=== PATIENT | male | born 1955 | race Caucasian/White ===

== ENCOUNTER 2022-03-11 07:45 | Observation (INO) ==
--- NOTE | 2022-02-13 10:45 | PAT Medication Instructions ---
Medication Instructions Date of Service February 13, 2022 Home Medications Medication Instructions Recorded Wheeled Walker #1 ea 01/02/22 Wheeled Walker ascorbic acid (vitamin C) 500 mg chewable tablet (Vitamin C) 1,000 mg PO QAM aspirin 81 mg tablet,delayed release 81 mg PO QAM carvedilol 6.25 mg tablet 6.25 mg PO BID cholecalciferol (vitamin D3) 125 mcg (5,000 unit) tablet (Vitamin D3) 125 mcg PO QAM dulaglutide 3 mg/0.5 mL subcutaneous pen injector (Trulicity) 3 mg subcut WK insulin aspart U-100 100 unit/mL (3 mL) subcutaneous pen (Novolog Flexpen U-100 Insulin aspart) 12 - 20 unit subcut UD insulin degludec 100 unit/mL (3 mL) subcutaneous pen (Tresiba FlexTouch U-100 insulin) 64 unit subcut BID metformin 1,000 mg tablet 1,000 mg PO BID multivitamin 1 tab PO QAM paroxetine HCl 10 mg tablet 10 mg PO QAM paroxetine HCl 40 mg tablet 40 mg PO QAM rosuvastatin 40 mg tablet 40 mg PO HS spironolactone 25 mg tablet 12.5 mg PO QAM valsartan 40 mg tablet 40 mg PO HS Continue as directed dulaglutide 3 mg/0.5 mL subcutaneous pen injector (Trulicity) 3 mg subcut WK DO NOT take the morning of surgery ascorbic acid (vitamin C) 500 mg chewable tablet (Vitamin C) 1,000 mg PO QAM cholecalciferol (vitamin D3) 125 mcg (5,000 unit) tablet (Vitamin D3) 125 mcg PO QAM metformin 1,000 mg tablet 1,000 mg PO BID multivitamin 1 tab PO QAM spironolactone 25 mg tablet 12.5 mg PO QAM insulin aspart U-100 100 unit/mL (3 mL) subcutaneous pen (Novolog Flexpen U-100 Insulin aspart) 12 - 20 unit subcut UD Take morning of surgery With a small sip of water, OTHERWISE NOTHING TO EAT OR DRINK AFTER MIDNIGHT: aspirin 81 mg tablet,delayed release 81 mg PO QAM (unless directed otherwise by surgeon) carvedilol 6.25 mg tablet 6.25 mg PO BID paroxetine HCl 10 mg tablet 10 mg PO QAM paroxetine HCl 40 mg tablet 40 mg PO QAM Take evening before surgery carvedilol 6.25 mg tablet 6.25 mg PO BID metformin 1,000 mg tablet 1,000 mg PO BID rosuvastatin 40 mg tablet 40 mg PO HS valsartan 40 mg tablet 40 mg PO HS Insulin Dependent Diabetic Patients * Test your blood sugar the morning of surgery * If Blood Sugar is GREATER THAN 150, take HALF of your regular dose of: insulin degludec 100 unit/mL (3 mL) subcutaneous pen (Tresiba FlexTouch U-100 insulin)-32 unit subcut BID. * If Blood Sugar is LESS THAN 150, DO NOT TAKE ANY: insulin degludec 100 unit/mL (3 mL) subcutaneous pen (Tresiba FlexTouch U-100 insulin). Other Notes If you have any questions please call us at [phone] or [phone] or [phone] or [phone]
--- NOTE | 2022-02-17 12:56 | Anesthesiology Consultation ---
Date of Service February 17, 2022 Assessment & Plan (1) Encounter for pre-operative examination: - Check BSG AM DOS - COVID screening: Per assessment on 02/17: No known COVID-19 positive contacts or current COVID-19 related symptoms. Travel screen negative. Patient vaccinated. At surgeon discretion if preop Covid testing being done. - Outpatient joint assessment: Pt currently scheduled for inpatient pathway. If surgeon requests review for outpatient joint pathway, patient is not recommended candidate for outpatient joint program from anesthesia standpoint. - Pt scheduled to see cardio for routine f/u prior to surgery. Awaiting upcoming cardiology office visit note (Dr. Ku/Jose Alberto; appt 03/04). Chart Review Chart Review: Patient seen in Pre Admission Testing Teaching & Discussion Pre-Anesthesia Teaching/Discussion Notes: Instructed NPO after midnight before surgery,except medications with 15 cc of water. Medication instructions provided according to the PAT guidelines. History Surgery Operation Date: 03/11/22 10:40 Proposed Procedures p Right Total Knee Arthroplasty - Dominik Hill MD Height/Weight Height: 5 ft 9 in Weight: 114 kg Allergies Allergy/AdvReac Type Severity Reaction Status Date / Time silver sulfadiazine Allergy Intermediate Hives Verified 02/12/22 15:05 [From Silvadene] Medications Home Medications Medication Instructions Recorded Confirmed Last Taken Wheeled Walker #1 ea 01/02/22 01/02/22 Unknown ascorbic acid (vitamin C) 500 mg 1,000 mg PO QAM 02/12/22 02/12/22 Unknown chewable tablet (Vitamin C) aspirin 81 mg tablet,delayed 81 mg PO QAM 02/12/22 02/12/22 Unknown release carvedilol 6.25 mg tablet 6.25 mg PO BID 02/12/22 02/12/22 Unknown cholecalciferol (vitamin D3) 125 125 mcg PO QAM 02/12/22 02/12/22 Unknown mcg (5,000 unit) tablet (Vitamin D3) dulaglutide 3 mg/0.5 mL 3 mg subcut WK 02/12/22 02/12/22 Unknown subcutaneous pen injector (Trulicity) insulin aspart U-100 100 unit/mL 12 - 20 unit subcut UD 02/12/22 02/12/22 Unknown (3 mL) subcutaneous pen (Novolog Flexpen U-100 Insulin aspart) insulin degludec 100 unit/mL (3 64 unit subcut BID 02/12/22 02/12/22 Unknown mL) subcutaneous pen (Tresiba FlexTouch U-100 insulin) metformin 1,000 mg tablet 1,000 mg PO BID 02/12/22 02/12/22 Unknown multivitamin 1 tab PO QAM 02/12/22 02/12/22 Unknown paroxetine HCl 10 mg tablet 10 mg PO QAM 02/12/22 02/12/22 Unknown paroxetine HCl 40 mg tablet 40 mg PO QAM 02/12/22 02/12/22 Unknown rosuvastatin 40 mg tablet 40 mg PO HS 02/12/22 02/12/22 Unknown spironolactone 25 mg tablet 12.5 mg PO QAM 02/12/22 02/12/22 Unknown valsartan 40 mg tablet 40 mg PO HS 02/12/22 02/12/22 Unknown Past Medical History Medical History Arthritis CAD (coronary artery disease) s/p stents x2 (2014) Follows with Dr. Ku Depression Diabetes mellitus, type 2 Elevated cholesterol History of diverticulosis Hx of congestive heart failure Hypertension Myocardial Infarction 2014 Neuropathy Feet Exercise / Class Metabolic Activity III < 4 Walking/Shop/Light housework Past Family History Family History Other Cancer Coronary heart disease Diabetes No family history of adverse response to anesthesia Past Surgical History Surgical History Fusion of spine Lumbar H/O heart artery stent 2014 > stents x2 History of cataract surgery R/L History of colonoscopy History of tonsillectomy History of tooth extraction S/P correction of deviated nasal septum Past Anesthesia History No Hx of Anesthesia Complications and No Family Hx of Anesthesia Complications History of PONV No Hx of PONV and No Hx of Motion Sickness Social History Smoking Status: Former smoker tobacco type: cigarettes Do You Dip or Chew Tobacco: No Smoking End Date: Quit 27 years ago Hx Alcohol Use: No Hx Substance Use: No substance use type: does not use Review of Systems Patient denies chest pain, shortness of breath, fever, chills, cough, wheezing, palpitations. Physical Exam Vital Signs VITALS BP 117/64 P 68 TEMP 97.5 SP02 96%RA RESP 18 PHYSICAL Full cervical extension range of motion. Full TMJ range of motion. TMD 3.5 finger breaths Mallampati Score 2 Dentition: several missing/chipped teeth (including chipped upper front) Lungs: clear throughout to auscultation Cardiac: regular rate and rhythm, distant heart sounds Spine: normal Carotid arteries: negative bruit Extremities: no edema Lab Results Anesthesia Preop Results Results Anesthesia Widget: WBC 6.28 K/ul (4.8-10.8) 02/17/22 Hgb 13.9 g/dl (14.0-18.0) L 02/17/22 Hct 41.4 % (40.1-51.0) 02/17/22 Plt 209 K/uL (130-400) 02/17/22 Na 139 mmol/L (136-145) 02/17/22 K 4.4 mmol/L (3.5-5.1) 02/17/22 Cl 106 mmol/L (98-107) 02/17/22 CO2 28 mmol/L (21-32) 02/17/22 BUN 11 mg/dl (6-23) 02/17/22 Creat 0.95 mg/dl (0.6-1.4) 02/17/22 Glucose Level 120 mg/dl (70-99(Fasting)) H 02/17/22 PT 11.5 Seconds (9.0-12.0) 02/17/22 PTT 27.8 Seconds (21.0-31.0) 02/17/22 INR 1.1 (0.9-1.1) 02/17/22 HA1c 6.8 % (4.5-5.6) H 02/17/22 Blood Type O Positive 02/17/22 Antibody Screen NEGATIVE 02/17/22 Testing Electrocardiogram Date: 06/16/21 Sinus rhythm with frequent PVCs at 67 bpm. Probable inferior KS, probably old with posterior extension. Compared to 04/15/2021, no significant change per machine operations supervisor comparison. Chest X-Ray Date: 02/17/22 FINDINGS: No lines and tubes are seen. Cardiomegaly is noted. The aortic arch is calcified. The lungs are clear. No evidence of pleural effusion or pneumothorax. IMPRESSION: No acute chest disease. Cardiomegaly is noted. Echocardiogram Date: 06/03/21 EF 55 to 60%. No regional motion abnormality. Mildly increased wall thickness. Mildly calcified mitral valve annulus. No significant valvular disease. Stress Test Date: 04/16/21 Type: nuclear Lexiscan stress EKG is not indicative of ischemia. Evidence of prior basal to mid inferior wall infarct, but no evidence of reversible ischemia. Calculated left ventricular ejection fraction of 31%, which is likely not accurate (visually, appears to be greater than 40% per report). Alternative imaging modality such as echocardiography +/- contrast is recommended if more accurate assessment of systolic function is required. There is basal to mid inferior wall hypokinesis. > Echo performed 06/03/2021 demonstrated EF 55-60%. COVID-19 Risk Screen Screening Information COVID-19 Screen Date: 02/17/22 Exposure 21 Days Family/Household +COVID Last 21 Days: No Exposure 10 Days Any COVID Exposure Last 10 Days: No Symptoms Last 10 Days Experienced COVID Sx Last 10 Days: No + COVID 0-90 Days COVID + in Last 0-90 Days: No
--- NOTE | 2022-03-08 11:37 | History and Physical Report ---
CHIEF COMPLAINT: Bilateral knee pain and discomfort, right side greater than left. HISTORY OF PRESENT ILLNESS: The patient is a 66-year-old gentleman, long-term patient of our practic e who now presents for surgical treatment of his right knee, specifically. He has got a long history of bilateral knee pain and discomfort and has gotten worse over the years. He has been through exte nsive conservative treatment, which have become less successful over time. The last shot did not hel p as much. Both knees hurt. The right knee a bit worse than the left. He would like to consider kn ee replacement. PAST MEDICAL HISTORY: Significant for: 1. Coronary artery disease, status post cardiac stent placement 10 years ago without recurrence of s ymptoms and cleared for surgery by [facility]. 2. Elevated cholesterol. 3. Diabetes. 4. Depression. 5. Obesity with BMI of 38. PAST SURGICAL HISTORY: Includes: 1. Spine surgery. 2. Cardiac stent placement x2. 3. Nasal surgery. ALLERGIES: SULFA. CURRENT MEDICATIONS: Include: 1. Diazepam. 2. Insulin. SOCIAL HISTORY: He is a 66-year-old male. He does not drink. No significant smoking history. FAMILY HISTORY: Noncontributory. REVIEW OF SYSTEMS: Significant for diabetes for 10 years. Relatively well controlled. No chest eloise n or shortness of breath. No history of DVT or PE. He did have cardiac stents placed 10 years ago w ithout current symptoms. Recent stress test was negative for ischemia. PHYSICAL EXAMINATION: GENERAL: Shows an obese, middle-aged male. Looks to be in reasonably good health. HEENT: Benign. NECK: Supple. No lymphadenopathy. LUNGS: Clear to auscultation. HEART: Has a regular rate and rhythm. ABDOMEN: Soft, nontender, nondistended. EXTREMITIES: Grossly neurovascularly intact except as follows. Examination of both knees revealed patient walks with a bit of waddling gait. Examination of the rig ht knee reveals varus alignment to his knee. Tender with medial joint line. Small knee effusion. R erin of motion 5-120 degrees. No instability. No pain with hip motion. Examination of the left kne e reveals similar varus deformity. He has got bony hypertrophy medially and tender medially. Range of motion 5-125. No instability. X-RAYS: X-rays of both knees reveal advanced bilateral medial compartment arthritis. Right knee is a little bit worse than the left. It looks like he has got some loose bodies in his knee as well. ASSESSMENT: A 66-year-old gentleman with multiple medical comorbidities including coronary artery di sease, status post stent placement; obesity, elevated cholesterol, diabetes, depression with advanced bilateral knee degenerative joint disease. He has failed conservative treatment. He would like to proceed with surgery, specifically on the right knee. PLAN: We will take him to the operating room and do right total knee replacement. The risks and maggy efits of this procedure were explained to the patient and include but not limited to DVT, PE, , infection, neurological injury, vascular injury, bleeding problem, pain, limited range of motion, sti ffness, failure to relieve symptoms, incomplete relief of symptoms, need for further surgery in the f uture, etc. The patient understands and desires to proceed. Informed consent was obtained. He did recently see the field ironworker over at [facility] and he saw Marco Gotti, this is a TECHNOLOGY DEVELOPMENT INTERN. He has been cleared for surgery. He did have a recent stress test, which showed no signs of ischemia. He is planning to be discharged to home using [facility] home health program. Wi ll use aspirin for DVT prophylaxis. Job ID: [id number]
[~2022-03-11 07:45] MED LIST: ACETAMINOPHEN 500 MG TAB PO SCH; BUPIVACAINE 0.5 % 5 MG/1 ML PF 10ML VIAL ONE; BUPIVACAINE LIPOSOME/PF 266 MG, BUPIVACAINE/EPINEPHRINE 50 ML, SODIUM CHLORIDE 0.9% 30 ... INFIL SCH; CeleBREX 200 MG CAP PO SCH; FAMOTIDINE 20 MG TAB PO SCH; LR 500ML BOLUS, THEN 15ML/HR IV SCH; LR 60ML/HR IV SCH; METOCLOPRAMIDE HCL 10 MG TABLET PO SCH; ROPIVACAINE 0.5% 5 MG/ML 30 ML VIAL ONE; Scopolamine 1 MG TDSY TD SCH; TRANEXAMIC ACID 1,000 MG **IV Intra-op IV SCH; ceFAZolin 2000MG 2,000 MG/15 ML SYR IV SCH
--- NOTE | 2022-03-11 09:03 | History & Physical Bridge Note ---
Date of Service March 11, 2022 History & Physical Bridge Note I have examined the patient, reviewed the History & Physical and in the interval since the performance of the History & Physical I have noted the following changes of clinical significance: no changes noted
[2022-03-11] MEDS ORDERED: fentaNYL citrate 100 MCG/2 ML VIAL IV PRN (09:43)
[2022-03-11] MEDS ORDERED: ONDANSETRON INJ 2 MG/ML 2 ML VIAL IV PRN ×2 (09:43→17:28)
[2022-03-11] MEDS ORDERED: ePHEDrine sulfate 50 MG/ML AMP IV PRN (09:43)
[2022-03-11] MEDS ORDERED: ATROPINE SULFATE 0.1 MG/ML 10ML SYR IV PRN (09:43)
[2022-03-11] MEDS ORDERED: MIDAZOLAM HCL 1 MG/ML 2ML VIAL ONE (09:46)
[2022-03-11] MEDS ORDERED: fentaNYL citrate 100 MCG/2 ML VIAL ONE (09:46)
[2022-03-11] MEDS ORDERED: ONDANSETRON INJ 2 MG/ML 2 ML VIAL ONE (10:24)
[2022-03-11] MEDS ORDERED: LIDOCAINE 2% MPF LOCAL 5 ML VIAL INFIL ONE (10:24)
[2022-03-11] MEDS ORDERED: PROPOFOL IV EMULSION 10 MG/ML 20 ML VIAL IV ONE ×3 (10:24→13:04)
[2022-03-11] MEDS ORDERED: KETOROLAC 30 MG/ML VIAL ONE (10:57)
[2022-03-11] MEDS ORDERED: BUPIVACAINE/EPINEPHRINE 0.25% 1:200,000 30 ML VIAL ONE (11:48)
[2022-03-11] MEDS ORDERED: SODIUM CHLORIDE 0.9% PF 50 ML VIAL ONE (11:48)
[2022-03-11] MEDS ORDERED: BUPIVACAINE LIPOSOME 1.3% 266 MG/20 ML VIAL ONE (11:49)
[2022-03-11] MEDS ORDERED: VANCOMYCIN HCL 1000MG/20ML VIAL ONE (12:24)
[2022-03-11] MEDS ORDERED: ePHEDrine sulfate 50 MG/ML AMP ONE (12:40)
--- NOTE | 2022-03-11 14:04 | Operative Report ---
PG Post Operative Report Pre & Post Diagnosis Operation Date: 03/11/22 10:40 Pre-Op Diagnosis: Right Knee Advanced Degenerative Joint Disease Post-Op Diagnosis: Right Knee Advanced Degenerative Joint Disease I identified the patient and participated in the time-out.: Yes Procedure Operation Date: 03/11/22 10:40 Actual Procedures p Right Total Knee Arthroplasty(Right) - Dominik Hill MD Surgeon Dominik Hill MD Eligibility Analyst None Estimated Blood Loss 100 Findings Consistent with Post-Op Diagnosis Operative findings advanced right knee DJD. Extensive grade 4 [id number] disease of the medial and patellofemoral compartments and some spotty grade 4 changes laterally. Moderate-sized knee effusion. Osteophytes in all 3 compartments. Specimens Right knee sent for pathology Drains None Anesthesia Type Spinal MAC Complications none Disposition Accompanied Patient To Recovery: No Indications Patient is a 66-year-old gentleman said a long history of bilateral knee pain discomfort right side greater than left. We have been treating conservatively for over several years which became less successful over time. He failed conservative measures and elected proceed with right total knee replacement. Description of Procedure Operative implants consist of: 1 Biomet Vanguard size 67.5 right posterior stabilized femoral component. 2. Biomet size 75 tibial tray. 3. 10 mm posterior stabilized polyethylene insert. 4. 31 x 8 all Paller patella. The patient was taken the operating, identified, placed on the operating table supine position protectors were properly padded. IV antibiotics tried by anesthesia team. A spinal anesthetic and abductor canal block had been provided in the holding area. A Chacon catheter was placed in sterile fashion. Right thigh high tourniquet was then placed in the right lower extremities then prepped and draped in usual sterile fashion. The right leg was elevated exsanguinated with use of an Esmarch and the tourniquet was placed at 300 mmHg. An anterior approach of the right knee was then performed through a longitudinal incision centered over the patella. Sharp dissection was carried through subcutaneous tissue down the extensor mechanism. A medial parapatellar arthrotomy incision was made. Some subperiosteal dissection was carried out medially. The fat pad was resected from Neath patella tendon. Lateral patellofemoral ligament was released. Patella subluxated laterally and the knee was flexed. The osteophytes were taken off distal femur. The ACL and PCL were then released from distal femur the tibia subluxated anteriorly. The external tibial alignment jig was then placed in the interface the tibia and adjusted 14 mm medially. Proximal tibial cut was made removed 2 mm of bone from most deficient aspect medial tibial plateau. The tibia was sized to a size 75. Some osteophytes taken off medial and posterior medially. Attention drawn to the femur. The distal femur was entered with a sharp drill. Intramedullary canal was suction. A right 6 degree valgus cutting guide was placed. Distal femoral cutting block was pinned in place. Distal femoral cut was made to take an additional 3 mm of bone off distal femur. The femur was then sized to a size 67.5. The AP cutting block was pinned parallel to the epicondylar axis which wa s 3 degrees of external rotation. The anterior cut, anterior chamfer, posterior cut, posterior chamfer cuts were made. The box cutting guide was placed and adjusted slightly laterally. The box cut was made. The knee was flexed. The remnants of the medial and lateral menisci were excised. The osteophytes were taken off the posterior aspect of the femur. A trial femoral component was placed. The tibial tray was pinned in maximum external rotation and the drill and stem punch were used to create defect in proximal tibia for the tibial tray. Knee was then trialed and the 10 mm insert fit most appropriately. Attention drawn the patella. The patella was cleaned of all soft tissues. Patella thickness measured 23 mm in thickness. Was cut down to 14. Was sized to a size 31 patella. The lug holes were drilled for the 31 patella. The lateral osteophyte was removed. Patella button was placed. Knee was taken through range of motion patella tracked nicely with no thumbs test. Attention drawn to placing permanent components. All trial components were removed. Bone plug was placed in the distal femur limit blood loss. A double batch Palacos G cement was mixed. A Biomet Vanguard size 67.5 right posterior stabilized femoral component. A size 75 tibial tray, 10 mm posterior stabilized polyethylene insert, and a 31 x 8 all Paller patella then cemented in place. The knee was brought out into full extension until cement hardened. Final cement check was then performed. Pericapsular tissues were injected with total of 100 cc of combination of 20 cc of Exparel, 30 cc normal saline, 50 cc of quarter percent Marcaine with epinephrine. Patient did receive 1 g tranexamic acid. The tourniquet was let down for final turn time 67 minutes. Hemostasis assured use electrocautery. Extensor mechanism then closed with combination 1 PDS suture #1 Vicryl suture in [id number] fashion. Extensor mechanism was checked and found to be intact with subcutaneous tissue was then closed with 2 Dexon suture in a buried interrupted fashion skin was closed skin elie. Leg was then cleaned and dried a sterile dressing was Xeroform, 4 x 4's, sterile cast padding, Jamari bandage were applied. Patient then transferred to the recovery room in stable condition. Patient tolerated the procedure well and there were no complications. I attest to the content of the Intraoperative Record and any orders documented therein. Any exceptions are noted below.
--- NOTE | 2022-03-11 14:32 | XRay Report ---
XR knee RT 1 or 2V routine CLINICAL HISTORY: Postoperative evaluation. COMPARISON: Right knee radiographs January 02, 2022. FINDINGS: Alignment of the total right knee arthroplasty is anatomic. There is no periprosthetic fra cture or unexpected radiopaque foreign body. Skin elie are present. IMPRESSION: Expected findings following total right knee arthroplasty. ACT 112: Negative or not required by law. Electronically signed by: Natanael Henson M.D. 03/11/2022 2:31 PM
--- NOTE | 2022-03-11 14:58 | Anesthesiology Progress Note ---
Date of Service March 11, 2022 Anesthesia Post Procedure Vital Signs Vital Signs: Temp Pulse Pulse Resp BP Pulse Ox O2 Del Method 03/11/22 14:15 64 22 119/70 94 Room Air 03/11/22 14:55 57 L 19 121/67 95 Room Air 03/11/22 14:45 57 L 19 128/73 96 Room Air 03/11/22 14:35 57 L 24 125/68 96 Room Air 03/11/22 14:25 62 15 116/72 93 Room Air 03/11/22 14:05 59 L 17 125/74 95 Room Air 03/11/22 13:59 98.2 F 59 L 20 116/71 97 Oxymask 03/11/22 08:36 98.1 F 73 20 137/64 98 Room Air O2 Flow Rate 03/11/22 14:15 03/11/22 14:55 03/11/22 14:45 03/11/22 14:35 03/11/22 14:25 03/11/22 14:05 03/11/22 13:59 5 03/11/22 08:36 Pain Intensity Right Knee: Pain Intensity: 4 Transfer of Care Handoff Completed per policy Notes Mental Status: alert / awake / arousable and participated in evaluation Patient Amnestic to Procedure: Yes Nausea / Vomiting: adequately controlled Pain: adequately controlled Airway Patency, RR, SpO2: stable & adequate BP & HR: stable & adequate Hydration State: stable & adequate Neuraxial Anesthesia: was administered and sensory block is resolving Anesthetic Complications: no major complications apparent and Pt Satisfied with anesthetic care
[2022-03-11] MEDS ORDERED: PHARMACY GLYCEMIC MGMT CONSULT PRN (17:28)
[2022-03-11] MEDS ORDERED: GLUCOSE 40% GEL 15 GM TUBE PO PRN (17:28)
[2022-03-11] MEDS ORDERED: HYDROmorphone INJ 0.5 MG/0.5 ML SYR IV PRN (17:28)
[2022-03-11] MEDS ORDERED: ASCORBIC ACID 500 MG TAB PO SCH (17:28)
[2022-03-11] MEDS ORDERED: NON-FORMULARY MEDICATION (Dulaglutide [Trulicity] 3 mg/0.5 mL Pen Injector) SQ SCH (17:28)
[2022-03-11] MEDS ORDERED: METOCLOPRAMIDE HCL INJ 5 MG/ML 2 ML VIAL IV PRN (17:28)
[2022-03-11] MEDS ORDERED: NALOXONE HCL 0.4 MG/1 ML VIAL/CARP IV PRN (17:28)
[2022-03-11] MEDS ORDERED: MAGNESIUM HYDROXIDE SUSP 30 ML UDC PO PRN (17:28)
[2022-03-11] MEDS ORDERED: GLUCOSE 10 TAB/TUBE PO PRN (17:28)
[2022-03-11] MEDS ORDERED: CARBOHYDRATES FOR HYPOGLYCEMIA PO PRN (17:28)
[2022-03-11] MEDS ORDERED: bisacodyL 10 MG SUPP PR PRN (17:28)
[2022-03-11] MEDS ORDERED: DEXTROSE 50% 50 ML SYRINGE IV PRN (17:28)
[2022-03-11] MEDS ORDERED: ALUMINUM/MAGNESIUM SUSP 30 ML UDC PO PRN (17:28)
[2022-03-11] MEDS ORDERED: GLUCAGON FOR INJ 1 MG VIAL SQ PRN (17:28)
[2022-03-11] MEDS: Scopolamine CHECK PATCH PLACEMENT SCH ×2 (17:47→23:02)
[2022-03-11] MEDS: ACETAMINOPHEN 500 MG TAB PO SCH ×2 (17:57→20:49)
[2022-03-11] MEDS: KETOROLAC 30 MG/ML VIAL IV SCH ×2 (18:00→23:39)
[2022-03-11] MEDS: SODIUM CHLORIDE 0.9% 1000ML 1,000 ML IV SCH (18:04)
[2022-03-11] MEDS ORDERED: TRANEXAMIC ACID / 0.7% NACL 1,000 MG/100 ML BAG IV SCH (20:00)
[2022-03-11] MEDS: carvediloL 6.25 MG TAB PO SCH (20:27)
[2022-03-11] MEDS: DOCUSATE SODIUM 100 MG CAP PO SCH (20:30)
[2022-03-11] MEDS: ASPIRIN 81 MG ECTAB PO SCH (20:30)
[2022-03-11] MEDS: ceFAZolin 2000MG 2,000 MG/15 ML SYR IV SCH (20:49)
[2022-03-11] MEDS: INSULIN ASPART PER UNIT SC SCH (20:50)
[2022-03-11] MEDS ORDERED: VALSARTAN 80 MG TAB PO SCH (21:00)
[2022-03-11] MEDS ORDERED: LANTUS PER UNIT CHARGE SQ ONE (21:00)
[2022-03-11] MEDS ORDERED: NON-FORMULARY MEDICATION (Insulin Degludec [Tresiba Flextouch U-100] 100 unit/mL (3 mL) In SQ SCH (21:00)
[2022-03-11] MEDS ORDERED: ROSUVASTATIN CALCIUM 20 MG TAB PO SCH (21:00)
[2022-03-11] MEDS ORDERED: SENNA 8.6 MG TAB PO SCH (21:00)
[2022-03-12] MEDS: INSULIN ASPART PER UNIT SC SCH ×3 (00:12→09:28)
[2022-03-12] MEDS: oxyCODONE HCL IR 5 MG TAB (IMMEDIATE RELEASE) PO PRN ×2 (00:15→08:08)
[2022-03-12] MEDS: ceFAZolin 2000MG 2,000 MG/15 ML SYR IV SCH (04:04)
[2022-03-12] MEDS: SODIUM CHLORIDE 0.9% 1000ML 1,000 ML IV SCH (04:05)
[2022-03-12] MEDS: ACETAMINOPHEN 500 MG TAB PO SCH (05:02)
[2022-03-12] MEDS: KETOROLAC 30 MG/ML VIAL IV SCH (05:02)
[2022-03-12 06:49] LABS: Hematocrit (blood only) 36.4 % (40.1-51.0); Mean Corpuscular Hemoglobin 30.9 pg (25.0-34.0); Mean Corpuscular Volume 93.8 fL (80.0-100.0); Mean Platelet Volume 10.4 fL (9.4-12.4); Platelet Count 161 K/uL (130-400); RDW Coefficient of Variation 14.5 % (11.5-14.5); RDW Standard Deviation 49.7 fL (36.4-46.3); Red Blood Count 3.88 M/uL (4.63-6.08); White Blood Count 7.61 K/ul (4.8-10.8)
[2022-03-12 07:17] LABS: BUN Creatinine Ratio 16.2 (10-20); Calcium 8.1 mg/dl (8.5-10.1); Creatinine Clr Calc Pharmacy 80.1 ml/min; Est GFR (African American) 75.9 ml/min; Est GFR (Non-African American) 65.5 ml/min
[2022-03-12] MEDS: DOCUSATE SODIUM 100 MG CAP PO SCH (08:05)
[2022-03-12] MEDS: ASPIRIN 81 MG ECTAB PO SCH (08:05)
[2022-03-12] MEDS: carvediloL 6.25 MG TAB PO SCH (08:06)
--- NOTE | 2022-03-12 08:06 | Progress Notes ---
SUBJECTIVE: A 66-year-old gentleman postoperative day 1 from right knee replacement. He is doing qu ite well. The pain is controlled. He has been up and walking in the hallway. No chest pain or shor tness of breath. OBJECTIVE: VITAL SIGNS: Temperature 36.8. Vital signs are stable. GENERAL: Pleasant middle-aged male. He is sitting up in bed, awake, alert, and oriented. LUNGS: Clear to auscultation. HEART: Regular rate and rhythm. ABDOMEN: Soft, nontender, and nondistended. EXTREMITIES: Grossly neurovascularly intact except as follows. Examination of the right leg reveals the dressing to be clean, dry, and intact. He can dorsiflex and plantarflex foot appropriately. He can do a straight leg raise. LABORATORY DATA: Hemoglobin 12.0. Hematocrit 36.4. Electrolytes are stable. ASSESSMENT: A 66-year-old gentleman, postoperative day 1 from right knee replacement, doing quite we ll. Pain is controlled. He is neurologically intact. PLAN: 1. DVT prophylaxis includes thigh-high TEDs, SCDs, and aspirin twice a day. 2. PT/OT, weightbear as tolerated. Right total knee protocol. 3. Pain control, doing okay with current pain regimen. 4. Disposition: Plan to discharge to home with some home health if he does okay in therapy today. Job ID: [id number]
[2022-03-12] MEDS: Scopolamine CHECK PATCH PLACEMENT SCH (08:13)
[2022-03-12] MEDS ORDERED: DOCUSATE SODIUM/SENNA 50/8.6MG TAB PO SCH (09:00)
[2022-03-12] MEDS ORDERED: SPIRONOLACTONE 12.5 MG TAB PO SCH (09:00)
[2022-03-12] MEDS ORDERED: CHOLECALCIFEROL 5,000 UNITS 125 MCG TAB PO SCH (09:00)
[2022-03-12] MEDS ORDERED: ASCORBIC ACID 500 MG TAB PO SCH (09:00)
[2022-03-12] MEDS ORDERED: NON-FORMULARY MEDICATION (Multivitamin Tablet) PO SCH (09:00)
[2022-03-12] MEDS ORDERED: PAROXETINE HCL 40 MG PO SCH (09:00)
[2022-03-12] MEDS ORDERED: TAMSULOSIN HCL 0.4 MG CAP PO SCH (09:00)
[2022-03-12] MEDS ORDERED: PARoxetine HCL 10 MG TAB PO SCH ×2 (09:00)
[2022-03-12] MEDS ORDERED: LANTUS PER UNIT CHARGE SQ SCH (09:00)
[2022-03-12] MEDS ORDERED: MULTIVITAMIN TAB PO SCH (09:00)
== END 2022-03-12 11:54 | disposition home health service (06) ==
LOC: 3E 07:45 → ASU 07:45